=== PATIENT | male | born 1980 | race Caucasian/White ===

== ENCOUNTER 2019-07-25 08:43 | Emergency (ER) | payer BC ==
[~2019-07-25] VITALS: Ht 170.2 cm; Wt 75.0 kg
--- NOTE | 2019-07-25 09:16 | NUR ---
PT HERE FOR CP THAT STARTED YESTERDAY MORNING AT 0900 WHILE AT WORK. CAME IN TODAY BECAUSE IT IS HIS DAY OFF. STATES PAIN IS SHARP AND IN THE MIDDLE OF HIS CHEST RADIATING UP TO LEFT SIDE OF CHEST AND SLIGHTLY THROUGH ABDOMEN. PT STATES PAIN COMES AND GOES BUT HAS BEEN PRESENT SINCE YESTERDAY. DENIES N/V/SOB. RESTING ON GURNEY. CONNECTED TO MONITOR. NADN. VSS.
[2019-07-25 09:55] VITALS: BP 127/92
--- NOTE | 2019-07-25 09:55 | NUR ---
PT RESTING ON AMBIKA. ADRIANNE. VSS. DENIES NEEDS. STATES PAIN IS NOT PRESENT AT THIS TIME.
--- NOTE | 2019-07-25 10:00 | NUR ---
MD AT BEDSIDE ASSESSING PT AND DISCUSSING POC NOW.
--- NOTE | 2019-07-25 10:22 | NUR ---
PT AWARE OF DC PLAN. GETTING DRESSED NOW.
== END 2019-07-25 10:29 | disposition home or self-care (01) ==
LOC: ED 10:00
DX: R07.89 Other chest pain (principal)
CPT/HCPCS: 71045; 93005; 99283

== ENCOUNTER → 2021-01-26 | Outpatient (CLI) | payer OTHER ==
[2021-01-26 08:18] LABS: ALANINE AMINOTRANSFERASE 29 U/L (12-78); ALBUMIN 3.9 g/dL (3.4-5.0); ANION GAP 4 mmol/L (5-15); CALCIUM 8.8 mg/dL (8.5-10.1); CHLORIDE 107 mmol/L (98-107); CREATININE 1.01 mg/dL (0.7-1.3)
[2021-01-26 08:32] LABS: ALKALINE PHOSPHATASE 87 U/L (45-117); BILIRUBIN,TOTAL 0.3 mg/dL (0.2-1.0); TOTAL PROTEIN 7.7 g/dL (6.4-8.2)
== END | disposition home or self-care (01) ==
LOC: RAD 07:47
PROVIDERS: ATTEND Family Medicine
DX: M51.17 Intervertebral disc disorders with radiculopathy, lumbosacral region (principal); R20.2 Paresthesia of skin; M48.061 Spinal stenosis, lumbar region without neurogenic claudication
CPT/HCPCS: 36415; 72110; 80053